=== PATIENT | female | born 1975 | race Caucasian/White ===

== ENCOUNTER 2019-07-16 06:00 | Outpatient (RCR) | payer SELFPAY | END 2019-08-15 00:01 | LOC: SPT 06:00 | PROVIDERS: Family Provider Nurse Practitioner Family; Visit Provider Specialist | DX: M17.12 Unilateral primary osteoarthritis, left knee (principal) | CPT/HCPCS: 97110 ×7 ==

== ENCOUNTER 2019-08-16 06:00 | Outpatient (RCR) | payer SELFPAY | END 2019-09-15 23:00 | disposition home or self-care (01) | LOC: SPT 06:00 | PROVIDERS: Visit Provider Specialist | DX: M17.12 Unilateral primary osteoarthritis, left knee (principal) | CPT/HCPCS: 97110 ==

== ENCOUNTER → 2019-10-17 09:44 | Outpatient (BNVA) | payer SELFPAY | PROVIDERS: Visit Provider Nurse Practitioner Family | DX: E03.9 Hypothyroidism, unspecified (principal); F41.9 Anxiety disorder, unspecified; F32.9 Major depressive disorder, single episode, unspecified; R53.83 Other fatigue | CPT/HCPCS: 84443 ==

== ENCOUNTER → 2020-04-10 12:03 | Outpatient (BNVA) | payer SELFPAY | PROVIDERS: PCP Nurse Practitioner Family; Referring Provider Dermatology; Visit Provider Dermatology | DX: L30.4 Erythema intertrigo (principal); D22.9 Melanocytic nevi, unspecified; D23.9 Other benign neoplasm of skin, unspecified | CPT/HCPCS: 99203 ==

== ENCOUNTER → 2020-07-31 17:00 | Outpatient (BNVA) | payer SELFPAY | PROVIDERS: PCP Nurse Practitioner Family; Visit Provider Family Medicine | DX: N39.41 Urge incontinence (principal); N30.01 Acute cystitis with hematuria; M54.9 Dorsalgia, unspecified | CPT/HCPCS: 81003 ==

== ENCOUNTER 2021-05-25 18:15 | Emergency (ER) | payer OTHER, SELFPAY ==
[2021-05-25 18:42] VITALS: BP 134/87; PULSE 85; RESP 18; TEMP 35.9; O2SAT 97; BMI 49.8
--- NOTE | 2021-05-25 18:54 | W.ED.GENADLT ---
HPI - General Adult General: Chief complaint: General Medical Stated complaint: diarrhea, abd pain Time Seen by Provider: 05/25/21 18:49 Source: patient Mode of arrival: ambulatory Limitations: no limitations History of Present Illness: HPI narrative: 36-year-old female who states that starting roughly 2 to 3 hours ago started having crampy abdominal pain along with severe diarrhea. States she did he did pull a sausage earlier that did not seem to settle well with her stomach. She had some nausea no vomiting. She denies any abdominal pain currently just the cramping with the diarrhea. Denies any blood in her stool. Denies any worsening improving factors. Associated symptoms: Deny chest pain, dyspnea, headache(s) or rash Review of Systems Const: Denies: fever(s), chills, body aches or change in appetite Eyes: Denies: blurry vision or eye discomfort ENMT: Denies: throat pain or dental pain Card: Denies: chest pain Resp: Denies: dyspnea GI: Reports: abdominal pain and diarrhea : Denies: dysuria Musc: Denies: neck pain or back pain Skin/Breast: Denies: rash Neuro: Denies: headache(s) Psych: Denies: depression Ricky/Lymph: Denies: easy bruising All/Imm: Denies: urticaria PFSH ED PFSH: Medical History (Updated 05/25/21 @ 20:23 by Louisa Gill MD) Anxiety and depression Hypothyroid Social History Smoking and tobacco status: never smoked Second hand smoke exposure: No Alcohol intake: never Lives independently: No (mother) Household members: family Housing: House Marital status: Single Current occupational status: employed Current occupation: [employer] Pets and animals: Yes History of recent travel: No Current gender identity: Female Female Reproductive History: Date of last menstrual period: 04/30/21 Physical Exam Const: COMMON NORMALS: no acute distress, patient oriented x3 and healthy appearing HENMT: COMMON NORMALS: normocephalic and atraumatic HEAD & SCALP: normocephalic and atraumatic Eye: COMMON NORMALS: Equal, round and reactive pupils present and EOMs intact bilaterally PUPIL: Yes Equal, round and reactive pupils present Neck/C-Spine: COMMON NORMALS: full ROM and supple Chest: COMMONS NORMALS: normal inspection of the chest and normal palpation of entire chest wall Resp: COMMON NORMALS: normal respiratory effort, No retractions, No use of accessory muscles and clear to auscultation bilaterally AUSCULTATION: clear to auscultation bilaterally Cardio: COMMON NORMALS: regular rate, regular rhythm and No murmurs present (Cardio) RATE: regular rate RHYTHM: regular rhythm GI: COMMON NORMALS: Normal to inspection, nondistended, normoactive bowel sounds present, Soft to palpation, non-tender and no masses PALPATION: Yes Soft to palpation Extremity: COMMON NORMALS: normal to inspection and full ROM Neuro: COMMON NORMALS: patient oriented x3, moves all extremities and no focal motor deficits Psych: COMMON NORMALS: mental status grossly normal, Normal thought process present and cooperative THOUGHT PROCESS: Normal thought process present Skin: COMMON NORMALS: no rashes or lesions noted and no wounds GENERAL SKIN EXAM: no rashes or lesions noted Course Vital Signs: Vital signs: Vital Signs Temperature 98.6 F 05/25/21 19:20 Pulse Rate 96 05/25/21 19:20 Respiratory Rate 14 05/25/21 19:20 Blood Pressure 145/83 05/25/21 19:20 Pulse Oximetry 100 05/25/21 19:20 MDM - General Adult MDM Narrative: Medical decision making narrative: Patient presents here with diarrhea that is likely either food related or viral. She is well-appearing is no signs of any serious infection blood work is normal. She feels improved after IV fluids she is to take Imodium A-D [id number] and will prescribe her Zofran. She is return if worsening. She understands agrees to plan. Lab Data: Labs: Lab Results 05/25/21 05/25/21 19:17 19:17 WBC 10.3 10^3/uL H 10 ^3/uL (4.0-10.0) RBC 4.58 10^6/uL 10^6 /uL (4.1-5.3) Hgb 12.6 g/dL g/dL (11.5-15.3) Hct 38.9 % % (37.0-47.0) MCV 84.9 fl fl (81-99) MCH 27.5 pg L pg (28.0-34.0) MCHC 32.4 g/dL g/dL (30.0-36.0) RDW 15.9 % H % (12.1-15.1) Plt Count 270 10^3/cmm 10^3 /cmm (130-400) MPV 10.1 fL fL (7.4-10.4) Neut % (Auto) 81.7 % % Lymph % (Auto) 11.5 % % [place] % (Auto) 5.5 % % Eos % (Auto) 0.7 % % Baso % (Auto) 0.2 % % Neut # (Auto) 8.38 10^3/uL H 10 ^3/uL (1.8-7.7) Lymph # (Auto) 1.2 10^3/uL 10^3/ uL (0.8-4.8) [place] # (Auto) 0.6 10^3/uL 10^3/ uL (0.2-0.9) Eos # (Auto) 0.1 10^3/uL 10^3/ uL (0.0-0.8) Baso # (Auto) 0.0 10^3/uL 10^3/ uL (0.0-0.1) Nucleated RBC % (a uto) 0 % % Nucleated RBCs # 0.0 /100WBC /100W BC Sodium 136 mmol/L mmol/L (136-145) Potassium 4.0 mmol/L mmol/L (3.5-5.1) Chloride 100 mmol/L mmol/L (98-107) Carbon Dioxide 24 mmol/L mmol/L (22-29) Anion Gap 16.0 (5-19) BUN 13 mg/dL mg/dL (6-20) Creatinine 0.5 mg/dL mg/dL (0.5-0.9) GFR Calculation 133.4 mL/min H mL /min (90-130) Glucose 80 mg/dL mg/dL (65-115) Calculated Osmolal ity 281 mOsm/kg L mOs m/kg (285-295) Calcium 8.8 mg/dL mg/dL (8.5-10.5) Total Bilirubin 0.4 mg/dL mg/dL (0.15-1.2) AST 11 U/L U/L (0-32) ALT 10 U/L U/L (0-33) Alkaline Phosphata se 122 IU/L H IU/L (35-105) Total Protein 7.3 g/dL g/dL (6.6-8.7) Albumin 3.7 g/dL g/dL (3.5-5.2) Globulin 3.6 g/dL g/dL (1.3-4.6) Lipase 19 U/L U/L (13-60) Discharge Plan Discharge Patient Disposition: Home Clinical Impression: Diarrhea Qualifiers: Diarrhea type: unspecified type Qualified Code(s): R19.7 - Diarrhea, unspecified Condition: Stable Prescriptions: New ondansetron 4 mg tablet,disintegrating 4 mg PO Q6H PRN (Reason: nausea and vomiting) Qty: 14 RF: 0 No Action multivitamin Tablet 1 tab PO DAILY RF: 0 glucosamine sulfate [Glucosamine] 500 mg tablet 500 mg PO BID RF: 0 triamcinolone acetonide 0.1 % cream 1 applic topical BID Qty: 80 RF: 1 citalopram 40 mg tablet See Rx Instructions .ROUTE .COMPLEX Qty: 30 RF: 2 albuterol sulfate [Proventil HFA] 90 mcg/actuation HFA aerosol inhaler 2 puff inhalation QID PRN (Reason: shortness of breath or wheezing) Qty: 6.7 RF: 1 ibuprofen 800 mg tablet 800 mg PO Q8H PRNRF: 0 levothyroxine 137 mcg tablet 137 mcg PO DAILY Qty: 30 RF: 2 tolterodine [Detrol LA] 4 mg capsule,extended release 24hr 4 mg PO DAILY Qty: 30 RF: 3 Discharge Orders: Discharge ED (Routine); Ordered 05/25/21 Ordered By: Louisa Gill Referrals: Nunu Chin MD [Primary Care Provider] - 1-3 days Discharge Diet: Advance as tolerated Discharge Activity: Resume usual activity Patient Instructions: Acute Diarrhea (ED) Coding Level of Care Code ED Vp Cardiovascular for Chg Fwd Exam Comprehensive
[2021-05-25 19:20] VITALS: BP 145/83; PULSE 96; RESP 14; TEMP 37; O2SAT 100
[2021-05-25] MEDS: sodium chloride 0.9% 1,000 ML 999 ML IV (19:24)
[2021-05-25] MEDS: diphenoxylate/atropine Tablet 1 TAB PO (19:24)
[2021-05-25 19:33] LABS: Basophils % 0.2 %; Eosinophils # 0.1 10^3/uL (0.0-0.8); Eosinophils % 0.7 %; Hematocrit 38.9 % (37.0-47.0); Hemoglobin 12.6 g/dL (11.5-15.3); Lymphocytes # 1.2 10^3/uL (0.8-4.8); Lymphocytes % 11.5 %; Mean Corpuscular HGB Conc 32.4 g/dL (30.0-36.0); Mean Corpuscular Hemoglobin 27.5 pg (28.0-34.0); Mean Corpuscular Volume 84.9 fl (81-99); Mean Platelet Volume 10.1 fL (7.4-10.4); Monocytes # 0.6 10^3/uL (0.2-0.9); Monocytes % 5.5 %; Neutrophils # 8.38 10^3/uL (1.8-7.7); Neutrophils % 81.7 %; Nucleated Red Blood Cells % 0 %; Platelet Count 270 10^3/cmm (130-400); Red Blood Count 4.58 10^6/uL (4.1-5.3); Red Cell Distribution Width 15.9 % (12.1-15.1); White Blood Count 10.3 10^3/uL (4.0-10.0)
[2021-05-25 20:06] LABS: Alanine Aminotransferase 10 U/L (0-33); Albumin Level 3.7 g/dL (3.5-5.2); Alkaline Phosphatase 122 IU/L (35-105); Aspartate Amino Transferase 11 U/L (0-32); Blood Urea Nitrogen 13 mg/dL (6-20); Calcium 8.8 mg/dL (8.5-10.5); Carbon Dioxide 24 mmol/L (22-29); Chloride 100 mmol/L (98-107); Globulin 3.6 g/dL (1.3-4.6); Glomerular Filtration Rate 133.4 mL/min (90-130); Glucose 80 mg/dL (65-115); Lipase 19 U/L (13-60); Osmolality Calculated 281 mOsm/kg (285-295); Sodium 136 mmol/L (136-145); Total Bilirubin 0.4 mg/dL (0.15-1.2); Total Protein 7.3 g/dL (6.6-8.7)
== END 2021-05-25 20:47 | disposition home or self-care (01) ==
PROVIDERS: Emergency Provider Emergency Medicine; PCP Family Medicine
DX: R19.7 Diarrhea, unspecified (principal)
CPT/HCPCS: 80053; 83690; 85025; 96360; 99283; J7030

== ENCOUNTER → 2021-06-18 13:13 | Outpatient (BNVA) | payer OTHER, SELFPAY | PROVIDERS: PCP Family Medicine; Visit Provider Family Medicine | DX: E03.9 Hypothyroidism, unspecified (principal); L60.0 Ingrowing nail; N39.41 Urge incontinence; F41.9 Anxiety disorder, unspecified; F32.9 Major depressive disorder, single episode, unspecified | CPT/HCPCS: 84443 ==

== ENCOUNTER → 2021-10-23 09:52 | Outpatient (BNVA) | payer OTHER, SELFPAY | PROVIDERS: PCP Family Medicine; Visit Provider Nurse Practitioner Family | DX: E03.9 Hypothyroidism, unspecified (principal); F41.9 Anxiety disorder, unspecified; F32.9 Major depressive disorder, single episode, unspecified; E66.9 Obesity, unspecified | CPT/HCPCS: 80053; 80061; 84443 ==

== ENCOUNTER 2022-01-16 18:26 | Emergency (ER) | payer OTHER, SELFPAY ==
[2022-01-16 18:59] VITALS: BP 136/95; PULSE 80; RESP 18; TEMP 36.3; O2SAT 95; BMI 51.1
--- NOTE | 2022-01-16 19:33 | XRR_ITS ---
PROCEDURE INFORMATION: Exam: XR Chest Exam date and time: 01/16/2022 8:30 PM Age: 46 years old Clinical indication: Cough and shortness of breath; Patient HX: Cough with SOB. Green mucus production. ; Additional info: Cough SOB TECHNIQUE: Imaging protocol: XR of the chest. Views: 1 view. COMPARISON: No relevant prior studies available. FINDINGS: Lungs: Unremarkable. No consolidation. Pleural spaces: Unremarkable. No pleural effusion. No pneumothorax. Heart/Mediastinum: Unremarkable. No cardiomegaly. Bones/joints: Unremarkable. XR/XR chest 1V portable [id number] IMPRESSION: No acute findings.
--- NOTE | 2022-01-16 19:50 | W.ED.SOB ---
HPI - SOB/Dyspnea General: Chief Complaint: General Medical Stated Complaint: Sinus Problems And Asthma Time Seen by Provider: 01/16/22 18:49 Source: patient History of Present Illness: HPI Narrative: 46-year-old female with a history of asthma complains of cough, congestion, for about a week. She notes today she got short of breath at work, and had to use her inhaler. It helped some, but not completely. She denies fever. No GI symptoms. MD elicited complaint: shortness of breath Pertinent past history: asthma Onset (ago): day(s) Timing: constant Severity: moderate Exacerbating factors: exertion Relieving factors: bronchodilators Known history of: asthma Associated symptoms: Reports chest congestion and cough; Deny abdominal pain, chest pain, dizziness, extremity pain, fever(s), nausea or vomiting Treatment prior to arrival: bronchodilator Review of Systems Const: Denies: fever(s) Eyes: Denies: change in vision ENMT: Reports: throat pain and hoarseness Card: Denies: chest pain Resp: Reports: dyspnea, non-productive cough and chest congestion GI: Denies: abdominal pain, nausea or vomiting Musc: Denies: extremity pain Neuro: Denies: dizziness PFS ED PFSH: Medical History (Updated 01/16/22 @ 20:36 by Kevin Holder DO) Anxiety and depression Hypothyroid Social History Smoking and tobacco status: never smoked Second hand smoke exposure: No Alcohol intake: never Lives independently: No (mother) Household members: family Housing: House Marital status: Single Current occupational status: employed Current occupation: [employer] Pets and animals: Yes History of recent travel: No Current gender identity: Female Female Reproductive History: Date of last menstrual period: 12/16/21 Physical Exam Const: GENERAL APPEARANCE: cooperative; not ill appearing and not frail appearing HENMT: COMMON NORMALS: normocephalic and Normal external nose present HEAD & SCALP: normocephalic FACE & SINUS: normal facial exam, sinuses nontender and face symmetric NOSE: Normal external nose present THROAT: posterior oropharynx normal Eye: COMMON NORMALS: Equal, round and reactive pupils present and EOMs intact bilaterally PUPIL: Yes Equal, round and reactive pupils present Neck/C-Spine: COMMON NORMALS: full ROM GENERAL: Yes trachea midline Chest: CHEST: Yes Symmetrical chest wall rise Resp: COMMON NORMALS: normal respiratory effort and No use of accessory muscles AUSCULTATION: wheezes right lower and right upper Cardio: COMMON NORMALS: regular rate and regular rhythm RATE: regular rate RHYTHM: regular rhythm GI: COMMON NORMALS: Normal to inspection, nondistended, normoactive bowel sounds present Course Vital Signs: Vital signs: Vital Signs Temperature 97.3 F L 01/16/22 18:59 Pulse Rate 80 01/16/22 18:59 Respiratory Rate 18 01/16/22 18:59 Blood Pressure 136/95 01/16/22 18:59 Pulse Oximetry 95 01/16/22 18:59 MDM - SOB/Dyspnea Medical Decision Making X-ray is clear. The patient is wheezing. She has had over a week of symptoms. She will be prescribed steroids and antibiotics, she does have a history of asthma. Discharge Plan Discharge Patient Disposition: Home Clinical Impression: Bronchitis Condition: Stable Prescriptions: New Medrol (Victor M) 4 mg tablets,dose pack See Rx Instructions .ROUTE .COMPLEX Qty: 21 0RF Rx Instructions: orally per package directions doxycycline hyclate 100 mg capsule 100 mg PO BID 7 Days Qty: 14 0RF No Action multivitamin Tablet 1 tab PO DAILY 0RF glucosamine sulfate [Glucosamine] 500 mg tablet 500 mg PO BID 0RF triamcinolone acetonide 0.1 % cream 1 applic topical BID Qty: 80 1RF albuterol sulfate [Proventil HFA] 90 mcg/actuation HFA aerosol inhaler 2 puff inhalation QID PRN (Reason: shortness of breath or wheezing) Qty: 6.7 1RF sertraline [Zoloft] 50 mg tablet 50 mg PO DAILY 30 Days Qty: 30 6RF metformin 500 mg tablet 500 mg PO DAILY Qty: 30 11RF ibuprofen 800 mg tablet 800 mg PO Q8H PRN0RF levothyroxine 150 mcg capsule 150 mcg PO DAILY Qty: 30 2RF diclofenac sodium [Voltaren Arthritis Pain] 1 % gel 4 g topical QID Qty: 100 3RF Rx Instructions: apply to single knee, ankle, foot; for foot includes sole/toes/top of foot oxybutynin chloride 5 mg tablet See Rx Instructions .ROUTE .COMPLEX Qty: 60 0RF Dose Instruction: Take 1 tablet by mouth twice daily Rx Instructions: Take 1 tablet by mouth twice daily ondansetron 4 mg tablet,disintegrating 4 mg PO Q6H PRN (Reason: nausea and vomiting) Qty: 14 0RF Discharge Orders: Discharge ED (Routine); Ordered 01/16/22 Ordered By: Kevin Holder Referrals: Nunu Chin MD [Primary Care Provider] - 4-7 days Patient Instructions: Acute Bronchitis (ED) Activity Restrictions/Additional Instructions: Use your inhaler every 4 hours while awake for the next 48 hours, then as needed. Other medications as directed. Return for worsening shortness of breath despite treatment, significant chest discomfort, fever despite 2-3 doses of antibiotics, any other concerning symptoms. Coding Level of Care Code ED Manager Sterile for Chg Fwd Exam Comprehensive
[2022-01-16 21:13] VITALS: BP 140/91; PULSE 81; RESP 17; TEMP 36.6; O2SAT 95
== END 2022-01-16 21:14 | disposition home or self-care (01) ==
PROVIDERS: Emergency Provider Emergency Medicine; PCP Family Medicine
DX: J40 Bronchitis, not specified as acute or chronic (principal)
CPT/HCPCS: 71045; 99283

== ENCOUNTER → 2022-03-05 11:49 | Outpatient (BNVA) | payer OTHER, SELFPAY | PROVIDERS: PCP Family Medicine; Visit Provider Nurse Practitioner Family | DX: E28.2 Polycystic ovarian syndrome (principal); F41.9 Anxiety disorder, unspecified; F32.9 Major depressive disorder, single episode, unspecified; E03.9 Hypothyroidism, unspecified; M17.12 Unilateral primary osteoarthritis, left knee; E66.9 Obesity, unspecified; L60.0 Ingrowing nail; R12 Heartburn; Z80.0 Family history of malignant neoplasm of digestive organs; Z12.11 Encounter for screening for malignant neoplasm of colon; R19.7 Diarrhea, unspecified; L70.9 Acne, unspecified; L98.9 Disorder of the skin and subcutaneous tissue, unspecified; L72.9 Follicular cyst of the skin and subcutaneous tissue, unspecified; L30.9 Dermatitis, unspecified | CPT/HCPCS: 80053; 80061; 83516; 85007; 85027 ==

== ENCOUNTER → 2022-06-05 13:20 | Outpatient (BNVA) | payer OTHER, SELFPAY | PROVIDERS: PCP Family Medicine; Visit Provider Nurse Practitioner Family | DX: F32.4 Major depressive disorder, single episode, in partial remission (principal); E28.2 Polycystic ovarian syndrome; E66.9 Obesity, unspecified; F41.9 Anxiety disorder, unspecified; F32.9 Major depressive disorder, single episode, unspecified; E03.9 Hypothyroidism, unspecified; M17.12 Unilateral primary osteoarthritis, left knee; R12 Heartburn; J34.89 Other specified disorders of nose and nasal sinuses; J33.9 Nasal polyp, unspecified | CPT/HCPCS: 80053; 80061 ==

== ENCOUNTER → 2022-10-02 13:10 | Outpatient (BNVA) | payer SELFPAY | PROVIDERS: PCP Family Medicine; Visit Provider Nurse Practitioner Family | DX: F41.9 Anxiety disorder, unspecified (principal); F32.4 Major depressive disorder, single episode, in partial remission; R53.83 Other fatigue; E28.2 Polycystic ovarian syndrome; L65.9 Nonscarring hair loss, unspecified; R25.2 Cramp and spasm; E03.9 Hypothyroidism, unspecified; M79.671 Pain in right foot; R32 Unspecified urinary incontinence; R12 Heartburn; N95.9 Unspecified menopausal and perimenopausal disorder | CPT/HCPCS: 80053; 80061; 82607; 82672; 83735; 84144; 84403 ==

== ENCOUNTER → 2023-06-04 13:16 | Outpatient (BNVA) | payer OTHER, SELFPAY | PROVIDERS: PCP Family Medicine; Visit Provider Nurse Practitioner Family | DX: F41.9 Anxiety disorder, unspecified (principal); F32.9 Major depressive disorder, single episode, unspecified; E03.9 Hypothyroidism, unspecified; R53.83 Other fatigue; E28.2 Polycystic ovarian syndrome; E66.9 Obesity, unspecified; M17.12 Unilateral primary osteoarthritis, left knee; R12 Heartburn; R32 Unspecified urinary incontinence; F32.4 Major depressive disorder, single episode, in partial remission; M25.562 Pain in left knee; E66.01 Morbid (severe) obesity due to excess calories; N39.41 Urge incontinence | CPT/HCPCS: 80053; 80061; 83036; 84443 ==

== ENCOUNTER → 2023-10-01 11:53 | Outpatient (BNVA) | payer OTHER, SELFPAY | PROVIDERS: PCP Nurse Practitioner Family; Visit Provider Nurse Practitioner Family | DX: F41.9 Anxiety disorder, unspecified (principal); F32.9 Major depressive disorder, single episode, unspecified; E03.9 Hypothyroidism, unspecified; E28.2 Polycystic ovarian syndrome; E66.01 Morbid (severe) obesity due to excess calories; Z79.899 Other long term (current) drug therapy | CPT/HCPCS: 80053; 80061; 83036; 84443; 85025 ==

== ENCOUNTER 2024-03-05 18:28 | Emergency (ER) | payer OTHER, SELFPAY ==
[2024-03-05 18:44] VITALS: BP 142/84; PULSE 79; RESP 17; TEMP 37.2; O2SAT 97; BMI 48.0
[2024-03-05 19:23] VITALS: BP 130/63; PULSE 76; RESP 18; O2SAT 99
[2024-03-05] MEDS: sodium chloride 0.9% 1,000 ML 999 ML IV (19:34)
[2024-03-05] MEDS: ondansetron 2 mg/ML SDV 2 mL 4 MG IVP (19:34)
[2024-03-05 19:35] VITALS: BP 130/63; PULSE 76; RESP 18; O2SAT 98
[2024-03-05 19:35] LABS: Basophils % 0.4 %; Eosinophils # 0.1 10^3/uL (0.0-0.8); Eosinophils % 1.1 %; Hematocrit 39.8 % (36-47); Lymphocytes # 1.1 10^3/uL (0.8-4.8); Lymphocytes % 13.9 %; Mean Corpuscular HGB Conc 32.4 g/dL (30-55); Mean Corpuscular Hemoglobin 27.3 pg (27-33); Mean Corpuscular Volume 84.1 fl (85-98); Mean Platelet Volume 10.1 fL (7.4-10.4); Monocytes # 0.5 10^3/uL (0.2-0.9); Monocytes % 7.2 %; Neutrophils # 5.83 10^3/uL (1.8-7.7); Neutrophils % 77.1 %; Nucleated Red Blood Cells % 0 %; Platelet Count 244 10^3/cmm (157-399); Red Blood Count 4.73 10^6/uL (3.85-5.65); Red Cell Distribution Width 15.4 % (12.1-15.1); White Blood Count 7.55 10^3/uL (3.29-11.43)
[2024-03-05 19:40] LABS: Add Urine Microscopic? NO; Charge for UA Resulting for Rev
--- NOTE | 2024-03-05 19:40 | ED_ITS ---
HPI - Nausea/Vomiting/Diarrhea 2 General: Chief complaint: Nausea/Vomiting/Diarrhea Stated complaint: Weak\Vomiting Time Seen by Provider: 03/05/24 19:05 History of Present Illness: Patient presents to the ER with a 2-day history of nausea vomiting. Patient says she has a stabbing twisting pain in her abdomen when she has a bowel movement. Patient is also been unable to make it to the bathroom for urinating. Patient has never had either 1 of these episodes before. She does take Pepcid daily. She does have a family history of colon cancer but not a personal history. She is on oxybutynin for overactive bladder. Review of Systems 2 General: Reports: 10 or more systems reviewed and unremarkable except in HPI and below PFSH ED 2 PFSH: Medical History (Updated 03/05/24 @ 20:16 by Oli Shearer DO) Anxiety and depression Hypothyroid Social History Smoking and tobacco/nicotine status: current every day tobacco/nicotine user Second hand smoke exposure: No Alcohol intake: never Substance/Drug Use: never Lives independently: No (mother) Household members: family Housing: House Marital status: Single Current occupational status: employed Current occupation: [employer] Pets and animals: Yes Current gender identity: Female Physical Exam 2 Const: COMMON NORMALS: no acute distress, average body habitus, patient oriented x3, no limitations, healthy appearing, alert and well nourished HENMT: COMMON NORMALS: normocephalic, hearing grossly normal bilaterally, external ears normal, Normal external nose present and moist oral mucous membranes HEAD & SCALP: normocephalic NOSE: Normal external nose present EXTERNAL EAR: Yes external ears normal Neck/C-Spine: COMMON NORMALS: no JVD Chest: COMMONS NORMALS: normal inspection of the chest and normal palpation of entire chest wall Resp: COMMON NORMALS: normal respiratory effort, No retractions, No use of accessory muscles and clear to auscultation bilaterally AUSCULTATION: clear to auscultation bilaterally Cardio: COMMON NORMALS: no JVD, regular rate, regular rhythm, S1 normal heart sound present, S2 normal heart sound present, No gallops present (Cardio), No clicks present (Cardio), No murmurs present (Cardio) and No rub (Cardio) R ATE: regular rate RHYTHM: regular rhythm HEART SOUNDS: S1 normal heart sound present and S2 normal heart sound present GI: COMMON NORMALS: Normal to inspection, nondistended, normoactive bowel sounds present, Soft to palpation, non-tender, No hepatosplenomegaly present and no masses PALPATION: Yes Soft to palpation and Yes No hepatosplenomegaly present Neuro: COMMON NORMALS: patient oriented x3 SENSORIUM/ORIENTATION: Yes alert Course 2 Vital Signs: Vital signs: Vital Signs Temperature 98.9 F 03/05/24 18:44 Pulse Rate 76 03/05/24 19:35 Respiratory Rate 18 03/05/24 19:35 Blood Pressure 130/63 03/05/24 19:35 Pulse Oximetry 98 03/05/24 19:35 Oxygen Delivery Me thod Room Air 03/05/24 19:35 MDM - Nausea/Vomiting/Diarrhea Medical Decision Making Patient presents with abdominal pain and nausea vomiting. Patient had lab work that included CBC CMP magnesium lipase, patient was given 1 L normal saline, 4 mg Zofran, urinalysis, lab work was essentially benign. Patient was feeling much better after the Zofran and fluid. Patient be discharged home with prescription for Zofran. Differential Diagnosis Likely gastroenteritis; Unlikely traveler's diarrhea, food poisoning, clostridium difficile infection, drug-induced nausea and vomiting or dehydration Medical Records I reviewed the patient's medical records. Lab Data I reviewed the patient's lab results. 03/05/24 19:21 03/05/24 19:21 Laboratory Results WBC 7.55 10^3/uL (3.29-11.43) 03/05/24 19: RBC 4.73 10^6/uL (3.85-5.65) 03/05/24 19:21 Hgb 12.90 g/dL (11.27-16.99) 03/05/24 19:21 Hct 39.8 % (36-47) 03/05/24 19:21 MCV 84.1 fl (85-98) L 03/05/24 19:21 MCH 27.3 pg (27-33) 03/05/24 19: MCHC 32.4 g/dL (30-55) 03/05/24 19:21 RDW 15.4 % (12.1-15.1) H 03/05/24 19:21 Plt Count 244 10^3/cmm (157-399) 03/05/24 19:21 MPV 10.1 fL (7.4-10.4) 03/05/24 19:21 Neut % (Auto) 77.1 % 03/05/24 19:21 Lymph % (Auto) 13.9 % 03/05/24 19:21 [place] % (Auto) 7.2 % 03/05/24 19:21 Eos % (Auto) 1.1 % 03/05/24 19:21 Baso % (Auto) 0.4 % 03/05/24 19:21 Neut # (Auto) 5.83 10^3/uL (1.8-7.7) 03/05/24 19:21 Lymph # (Auto) 1.1 10^3/uL (0.8-4.8) 03/05/24 19:21 [place] # (Auto) 0.5 10^3/uL (0.2-0.9) 03/05/24 19:21 Eos # (Auto) 0.1 10^3/uL (0.0-0.8) 03/05/24 19:21 Baso # (Auto) 0.0 10^3/uL (0.0-0.1) 03/05/24 19:21 Nucleated RBC % (auto) 0 % 03/05/24 19:21 Nucleated RBCs # 0.0 /100WBC 03/05/24 19:21 Sodium 139 mmol/L (136-145) 03/05/24 19:21 Potassium 4.3 mmol/L (3.5-5.1) 03/05/24 19:21 Chloride 105 mmol/L (98-107) 03/05/24 19:21 Carbon Dioxide 23 mmol/L (22-29) 03/05/24 19:21 Anion Gap 15.3 (5-19) 03/05/24 19:21 BUN 12 mg/dL (6-20) 03/05/24 19:21 Creatinine 0.4 mg/dL (0.5-0.9) L 03/05/24 19:21 GFR Calculation 171.1 mL/min (90-130) H 03/05/24 19:21 Glucose 90 mg/dL (65-115) 03/05/24 19:21 Calculated Osmolality 287 mOsm/kg (285-295) 03/05/24 19: Calcium 9.0 mg/dL (8.5-10.5) 03/05/24 19: Magnesium 2.0 mg/dL (1.7-2.3) 03/05/24 19:21 Total Bilirubin 0.3 mg/dL (0.15-1.2) 03/05/24 19:21 AST 13 U/L (0-32) 03/05/24 19:21 ALT 13 U/L (0-33) 03/05/24 19:21 Alkaline Phosphatase 119 U/L (35-105) H 03/05/24 19:21 Total Protein 7.6 g/dL (6.6-8.7) 03/05/24 19: Albumin 4.0 g/dL (3.5-5.2) 03/05/24 19: Globulin 3.6 g/dL (1.3-4.6) 03/05/24 19: Lipase 32 U/L (13-60) 03/05/24 19:21 Urine Color Yellow (Yellow) 03/05/24 19:30 Urine Appearance Clear (CLEAR) 03/05/24 19:30 Urine pH 5 (5-7) 03/05/24 19:30 Ur Specific [place] 1.020 (1.005-1.030) 03/05/24 19:30 Urine Protein Neg (Negative) 03/05/24 19:30 Urine Glucose (UA) Norm (Normal) 03/05/24 19:30 Urine Ketones 1+ (Negative) H 03/05/24 19:30 Urine Blood Neg (Negative) 03/05/24 19:30 Urine Nitrate Negative (Negative) 03/05/24 19:30 Urine Bilirubin Neg (Negative) 03/05/24 19:30 Urine Urobilinogen 1 mg/dL (Negative) H 03/05/24 19:30 Ur Leukocyte Esterase Negative (Negative) 03/05/24 19:30 All radiology interpretation(s) finalized by discharge Discharge Plan Discharge Patient Disposition: Home Clinical Impression: Gastroenteritis Abdominal pain Qualifiers: Abdominal location: unspecified location Qualified Code(s): R10.9 - Unspecified abdominal pain Condition: Stable Prescriptions: New ondansetron HCl 4 mg tablet 4 mg PO Q8H PRN (Reason: nausea and vomiting) Qty: 14 0RF No Action buspirone 10 mg tablet 10 mg PO TID 30 Days Qty: 90 6RF diclofenac sodium [Voltaren Arthritis Pain] 1 % gel 4 g topical QID Qty: 100 6RF Rx Instructions: apply to single knee, ankle, foot; for foot includes sole/toes/top of foot famotidine 40 mg tablet 40 mg PO DAILY 30 Days Qty: 90 6RF ibuprofen 800 mg tablet 800 mg PO Q8H PRN (Reason: pain) Qty: 30 0RF levothyroxine 150 mcg tablet See Rx Instructions .ROUTE .COMPLEX Qty: 30 6RF Dose Instruction: Take 1 tablet by mouth once daily Rx Instructions: Take 1 tablet by mouth once daily metformin 500 mg tablet 500 mg PO DAILY Qty: 30 6RF nystatin 100,000 unit/gram cream 1 applic topical BID Qty: 30 1RF oxybutynin chloride 5 mg tablet 5 mg PO BID 30 Days Qty: 60 6RF sertraline 100 mg tablet 100 mg PO DAILY 30 Days Qty: 30 6RF triamcinolone acetonide 0.1 % cream 1 applic topical BID Qty: 80 1RF Discharge Orders: Discharge ED (Routine); Ordered 03/05/24 Ordered By: Oli Shearer Referrals: Pastora Paez NP [Primary Care Provider] - 1 week Patient Instructions: Acute Nausea and Vomiting (ED), Abdominal Pain (ED) Activity Restrictions/Additional Instructions: Your lab work that included blood tests and urinalysis was essentially benign. It is felt you have a viral gastroenteritis or stomach virus. Please take your nausea medicine as prescribed. Please drink plenty of fluids. Please follow-up with your family practice doctor within the next 7 to 10 days for further evaluation as needed. If your pain worsens or if your nausea and vomiting is uncontrolled please feel free to return to the ER. Coding Level of Care Code ED Data Scientist for Jared Vargas
[2024-03-05 19:48] LABS: Bilirubin Urine Neg (Negative); Blood Urine Neg (Negative); Glucose Urine UA Norm (Normal); Ketones Urine 1+ (Negative); Leukocyte Esterase Urine Negative (Negative); Nitrate Urine Negative (Negative); Protein Urine Neg (Negative); Urine Appearance Clear (CLEAR); Urine Color Yellow (Yellow); Urobilinogen Urine 1 mg/dL (Negative); pH Urine 5 (5-7)
[2024-03-05 19:58] LABS: Alanine Aminotransferase 13 U/L (0-33); Alkaline Phosphatase 119 U/L (35-105); Anion Gap 15.3 (5-19); Aspartate Amino Transferase 13 U/L (0-32); Blood Urea Nitrogen 12 mg/dL (6-20); Carbon Dioxide 23 mmol/L (22-29); Chloride 105 mmol/L (98-107); Creatinine Clr Calc Pharmacy 229.5261; Globulin 3.6 g/dL (1.3-4.6); Glomerular Filtration Rate 171.1 mL/min (90-130); Glucose 90 mg/dL (65-115); Lipase 32 U/L (13-60); Osmolality Calculated 287 mOsm/kg (285-295); Potassium 4.3 mmol/L (3.5-5.1); Sodium 139 mmol/L (136-145); Total Bilirubin 0.3 mg/dL (0.15-1.2); Total Protein 7.6 g/dL (6.6-8.7)
[2024-03-05 20:34] VITALS: BP 130/63; PULSE 76; RESP 18; TEMP 37.2; O2SAT 98
== END 2024-03-05 20:35 | disposition home or self-care (01) ==
PROVIDERS: Emergency Medicine; Emergency Provider Emergency Medicine; PCP Nurse Practitioner Family
DX: K52.9 Noninfective gastroenteritis and colitis, unspecified (principal); Z79.84 Long term (current) use of oral hypoglycemic drugs; Z72.0 Tobacco use; R10.9 Unspecified abdominal pain
CPT/HCPCS: 36415; 80053; 81003; 83690; 83735; 85025; 96361; 96374; 99284; J2405; J7030

== ENCOUNTER → 2024-04-07 08:49 | Outpatient (BNVA) | payer OTHER, SELFPAY | PROVIDERS: PCP Nurse Practitioner Family; Visit Provider Nurse Practitioner Family | DX: E78.2 Mixed hyperlipidemia (principal); F41.9 Anxiety disorder, unspecified; F32.9 Major depressive disorder, single episode, unspecified; E03.9 Hypothyroidism, unspecified; E66.01 Morbid (severe) obesity due to excess calories; E28.2 Polycystic ovarian syndrome | CPT/HCPCS: 80053; 80061; 85025 ==

== ENCOUNTER 2024-05-22 13:51 | Outpatient (CLI) | payer OTHER, SELFPAY ==
--- NOTE | 2024-05-22 13:56 | MM_ITS ---
WS: [id number] SCREENING DIGITAL BREAST TOMOSYNTHESIS MAMMOGRAM WITH CAD HISTORY: SCREENIG COMPARISON: None available. Bilateral CC and MLO with tomosynthesis and synthetic mammography submitted. Computer aided detection analyzed. Breast composition: There are scattered areas of fibroglandular density. Ovoid mass measuring 15 x 7 x 9 mm anterior lateral LEFT breast. Mass is of increased density. No distortion. There are additiona l calcifications scattered within each breast. MM/MM Psychiatric tomosynthesis [id number] IMPRESSION: BI-RADS: 0 - Incomplete: Need additional imaging evaluation. FOLLOW UP: Need Additional Imaging LEFT breast: Spot compression views (CC and MLO). True ML. Ultrasound to follow if abnormality persists.
== END 2024-05-22 13:52 | disposition home or self-care (01) ==
LOC: RAD 13:52
PROVIDERS: PCP Nurse Practitioner Family; Visit Provider Nurse Practitioner Family
DX: Z12.31 Encounter for screening mammogram for malignant neoplasm of breast (principal); R92.323 Mammographic fibroglandular density, bilateral breasts; N63.20 Unspecified lump in the left breast, unspecified quadrant; R92.1 Mammographic calcification found on diagnostic imaging of breast
CPT/HCPCS: 77063; 77067

== ENCOUNTER 2024-08-10 19:13 | Emergency (ER) | payer OTHER, SELFPAY ==
[2024-08-10 19:19] VITALS: BP 173/83; PULSE 86; RESP 20; TEMP 36.6; O2SAT 97; BMI 46.3
[2024-08-10 19:27] VITALS: BP 139/83; PULSE 86; O2SAT 98
[2024-08-10 19:52] VITALS: BP 110/92; PULSE 82; O2SAT 98
[2024-08-10] MEDS: ondansetron 2 mg/ML SDV 2 mL 8 MG PO (19:53)
--- NOTE | 2024-08-10 19:58 | ED_ITS ---
HPI - Abdominal Pain 2 General: Chief Complaint: Abdominal Pain Stated Complaint: abd pain Time Seen by Provider: 08/10/24 19:16 Source: patient Mode of arrival: ambulatory Limitations: no limitations History of Present Illness: Patient is a 49-year-old female with no pertinent past medical history who reports to the emergency department complaining of diarrhea for 3 days. Denies any known sick contacts. Denies any blood or black tarry stools, states it is the consistency and color of mud. She is reporting some mild upper abdominal pain. States that she is due for another colonoscopy, has a history of polyps as well as family history of colon cancer and this concerned her. States that she had to call into work due to her diarrhea, is also reporting some rectal pain from the diarrhea. Denies any vomiting, but is feeling nauseous. She states she has had her gallbladder out, does not report her symptoms or pain to eating. She actually is noting that she has had a decreased appetite. States that her diarrhea is worse if she drinks coffee. MD elicited complaint: abdominal pain Pertinent past history: none Onset (ago): day(s) (3) Pain Consistency: constant Location: LUQ and RUQ Severity: mild Quality: cramping Associated Symptoms: Reports diarrhea and nausea; Denies bloating, change in stool character, chills, constipation, dysuria, fever(s), hematochezia and vomiting Related Data Previous Rx's Medication Instructions Recorded nystatin 100,000 unit/mL oral 5 ml PO QID #200 mL 03/23/24 suspension buspirone 10 mg tablet 10 mg PO TID 30 days #90 tabs 04/07/24 famotidine 40 mg tablet 40 mg PO DAILY 30 days #90 tabs 04/07/24 levothyroxine 150 mcg tablet See Rx Instructions .Route 04/07/24 .COMPLEX #30 tabs oxybutynin chloride 5 mg tablet 5 mg PO BID 30 days #60 tabs 04/07/24 metformin 500 mg tablet 500 mg PO BID #60 tabs 05/10/24 sertraline 100 mg tablet 150 mg (1.5 x 100 mg) PO DAILY 30 05/10/24 days #45 tabs fluconazole 100 mg tablet 100 mg PO DAILY #10 tabs 05/18/24 (Diflucan) nystatin 100,000 unit/gram topical 1 applic topical BID #60 grams 05/18/24 ointment permethrin 5 % topical cream 1 applic topical Q14D 2 doses #60 05/26/24 grams prednisone 20 mg tablet 20 mg PO BID 5 days #10 tabs 05/26/24 trazodone 50 mg tablet 50 mg PO .qhs #30 tabs 05/26/24 ondansetron HCl 4 mg tablet 4 mg PO Q8H #20 tabs 08/10/24 Allergies Allergy/AdvReac Type Severity Reaction Status Date / Time doxycycline Allergy ALGY-Rash Verified 06/15/24 06:55 erythromycin base Allergy ALGY-Rash Verified 06/15/24 06:55 naproxen Allergy ALGY-Difficulty Verified 06/15/24 06:55 Breathing Penicillins Allergy ALGY-Rash Verified 06/15/24 06:55 Sulfa (Sulfonamide Allergy ALGY-Rash Verified 06/15/24 06:55 Antibiotics) Review of Systems 2 General: Reports: 10 or more systems reviewed and unremarkable except in HPI and below Const: Reports: change in appetite; Denies: fever(s), chills, change in weight or diaphoresis ENMT: Denies: throat pain or hoarseness Card: Denies: chest pain, palpitations or lightheadedness Resp: Denies: dyspnea, productive cough or wheezing GI: Reports: abdominal pain, nausea and diarrhea; Denies: vomiting, constipation, bloating, change in stool character or hematochezia : Denies: flank pain, difficulty voiding, dysuria, urinary frequency or urinary urgency Musc: Denies: neck pain or back pain Skin/Breast: Denies: rash or new lesions Neuro: Denies: headache(s) or dizziness PFSH ED 2 PFSH: Medical History (Updated 08/10/24 @ 20:29 by PAVAN Nash) Anxiety and depression Hypothyroid Social History Smoking and tobacco/nicotine status: never used tobacco/nicotine Second hand smoke exposure: No Alcohol intake: never Substance/Drug Use: never Lives independently: No (mother) Household members: family Housing: House Marital status: Single Current occupational status: employed Current occupation: [employer] Pets and animals: Yes Sexually active: Yes Do you think of yourself as: Straight/Heterosexual Current gender identity: Female Female Reproductive History: Para: 0 Spontaneous abortions: No Physical Exam 2 Const: COMMON NORMALS: no acute distress, no limitations and well nourished GENERAL APPEARANCE: cooperative and comfortable NUTRITIONAL APPEARANCE: obese morbidly obese ORIENTATION/CONSCIOUSNESS: Yes awake HENMT: COMMON NORMALS: normocephalic, atraumatic, hearing grossly normal bilaterally and moist oral mucous membranes HEAD & SCALP: normocephalic and atraumatic Eye: COMMON NORMALS: Equal, round and reactive pupils present, EOMs intact bilaterally, conjunctivae normal and normal visual francis by confrontation C ONJUNCTIVA: Yes conjunctivae normal PUPIL: Yes Equal, round and reactive pupils present Neck/C-Spine: COMMON NORMALS: full ROM, supple and no JVD Resp: COMMON NORMALS: normal respiratory effort, No retractions, No use of accessory muscles and clear to auscultation bilaterally AUSCULTATION: clear to auscultation bilaterally, no crackles, no rales, no rhonchi and no wheezes Cardio: COMMON NORMALS: no JVD, regular rate, regular rhythm, S1 normal heart sound present, S2 normal heart sound present, No gallops present (Cardio), No clicks present (Cardio), No murmurs present (Cardio), No rub (Cardio) and Peripheral pulses 2+ throughout RATE: regular rate RHYTHM: regular rhythm HEART SOUNDS: S1 normal heart sound present and S2 normal heart sound present PERIPHERAL PULSES: Peripheral pulses 2+ throughout GI: COMMON NORMALS: Normal to inspection, nondistended, normoactive bowel sounds present, Soft to palpation, No hepatosplenomegaly present and no masses INSPECTION: Yes central obesity AUSCULTATION: Yes normoactive bowel sounds PALPATION: Yes Soft to palpation, No Guarding due to palpation present (GI), No Rigid due to palpation and Yes No hepatosplenomegaly present RECTAL EXAM: d eferred OTHER: Mild upper abdominal tenderness to palpation : COMMON NORMALS: Yes no CVA tenderness BLADDER/KIDNEY EXAM: Yes no CVA tenderness Back/Pelvis: COMMON NORMALS: no CVA tenderness Extremity: COMMON NORMALS: normal to inspection and full ROM Skin: COMMON NORMALS: no rashes or lesions noted GENERAL SKIN EXAM: no rashes or lesions noted Course 2 Vital Signs: Vital signs: Vital Signs Temperature 97.9 F 08/10/24 19:19 Pulse Rate 86 08/10/24 19:27 Respiratory Rate 20 H 08/10/24 19:19 Blood Pressure 139/83 08/10/24 19:27 Pulse Oximetry 98 08/10/24 19:27 MDM - Abdominal Pain Medical Decision Making Patient presented with diarrhea for the past few days. No sick contacts reported. Her labs were all unremarkable. No clear sign of infection. I believe her abdominal pain secondary to her diarrhea potentially some colicky pain. Her vitals have been stable. I do think this is viral and will treat conservatively with Zofran, she is feeling better after receiving Zofran here. Will give a work note so that she can rest and recover, encourage plenty of fluids and strict return precautions were given. Patient agreement with discharge plan at this time. Lab Data 08/10/24 19:52 08/10/24 19:52 Labs/Radiology: Laboratory Results WBC 8.80 10^3/uL (3.29-11.43) 08/10/24 19:52 RBC 4.56 10^6/uL (3.85-5.65) 08/10/24 19:52 Hgb 11.30 g/dL (11.27-16.99) 08/10/24 19:52 Hct 37.1 % (36-47) 08/10/24 19:52 MCV 81.4 fl (85-98) L 08/10/24 19:52 MCH 24.8 pg (27-33) L 08/10/24 19:52 MCHC 30.5 g/dL (30-55) 08/10/24 19:52 RDW 15.8 % (12.1-15.1) H 08/10/24 19:52 Plt Count 262 10^3/cmm (157-399) 08/10/24 19:52 MPV 9.4 fL (7.4-10.4) 08/10/24 19:52 Neut % (Auto) 78.8 % 08/10/24 19:52 Lymph % (Auto) 13.3 % 08/10/24 19:52 [place] % (Auto) 6.6 % 08/10/24 19:52 Eos % (Auto) 0.7 % 08/10/24 19:52 Baso % (Auto) 0.3 % 08/10/24 19:52 Neut # (Auto) 6.93 10^3/uL (1.8-7.7) 08/10/24 19:52 Lymph # (Auto) 1.2 10^3/uL (0.8-4.8) 08/10/24 19:52 [place] # (Auto) 0.6 10^3/uL (0.2-0.9) 08/10/24 19:52 Eos # (Auto) 0.1 10^3/uL (0.0-0.8) 08/10/24 19:52 Baso # (Auto) 0.0 10^3/uL (0.0-0.1) 08/10/24 19:52 Nucleated RBC % (auto) 0 % 08/10/24 19:52 Nucleated RBCs # 0.0 /100WBC 08/10/24 19:52 Sodium 137 mmol/L (136-145) 08/10/24 19:52 Potassium 3.8 mmol/L (3.5-5.1) 08/10/24 19:52 Chloride 103 mmol/L (98-107) 08/10/24 19:52 Carbon Dioxide 23 mmol/L (22-29) 08/10/24 19:52 Anion Gap 14.8 (5-19) 08/10/24 19:52 BUN 16 mg/dL (6-20) 08/10/24 19:52 Creatinine 0.5 mg/dL (0.5-0.9) 08/10/24 19:52 GFR Calculation 131.7 mL/min (90-130) H 08/10/24 19:52 Glucose 98 mg/dL (65-115) 08/10/24 19:52 Calculated Osmolality 285 mOsm/kg (285-295) 08/10/24 19:52 Calcium 8.6 mg/dL (8.5-10.5) 08/10/24 19:52 Total Bilirubin 0.2 mg/dL (0.15-1.2) 08/10/24 19:52 AST 12 U/L (0-32) 08/10/24 19:52 ALT 11 U/L (0-33) 08/10/24 19:52 Alkaline Phosphatase 132 U/L (35-105) H 08/10/24 19:52 Total Protein 7.2 g/dL (6.6-8.7) 08/10/24 19:52 Albumin 3.6 g/dL (3.5-5.2) 08/10/24 19:52 Globulin 3.6 g/dL (1.3-4.6) 08/10/24 19:52 Lipase 32 U/L (13-60) 08/10/24 19:52 Urine Color Yellow (Yellow) 08/10/24 19:58 Urine Appearance Clear (CLEAR) 08/10/24 19:58 Urine pH 6.5 (5-7) 08/10/24 19:58 Ur Specific [place] 1.023 (1.005-1.030) 08/10/24 19:58 Urine Protein Negative (Negative) 08/10/24 19:58 Urine Glucose (UA) Negative (Normal) 08/10/24 19:58 Urine Ketones Negative (Negative) 08/10/24 19:58 Urine Blood Negative (Negative) 08/10/24 19:58 Urine Nitrate Negative (Negative) 08/10/24 19:58 Urine Bilirubin Negative (Negative) 08/10/24 19:58 Urine Urobilinogen 1.0 mg/dL (Negative) 08/10/24 19:58 Ur Leukocyte Esterase Negative (Negative) 08/10/24 19:58 Urine RBC 0-2 /hpf (0-2) 08/10/24 19:58 Urine WBC 0-5 /hpf (0-5) 08/10/24 19:58 Ur Squamous Epith Cells 6-10 /hpf (0-5) 08/10/24 19:58 Amorphous Sediment Not Reportable 08/10/24 19:58 Urine Bacteria Trace /hpf (NONE) 08/10/24 19:58 Hyaline Casts 0-4 /lpf H 08/10/24 19:58 No radiology studies performed this visit Discharge Plan Discharge Patient Disposition: Home Clinical Impression: Viral gastroenteritis Condition: Stable Prescriptions: New ondansetron HCl 4 mg tablet 4 mg PO Q8H Qty: 20 0RF No Action nystatin 100,000 unit/mL suspension 5 ml PO QID Qty: 200 0RF Rx Instructions: swish and swallow fluconazole [Diflucan] 100 mg tablet 100 mg PO DAILY Qty: 10 0RF nystatin 100,000 unit/gram ointment 1 applic topical BID Qty: 60 0RF trazodone 50 mg tablet 50 mg PO .qhs Qty: 30 2RF prednisone 20 mg tablet 20 mg PO BID 5 Days Qty: 10 0RF permethrin 5 % cream 1 applic topical Q14D Qty: 60 0RF Rx Instructions: apply second treatment 14 days after first treatment if live lice remain buspirone 10 mg tablet 10 mg PO TID 30 Days Qty: 90 6RF famotidine 40 mg tablet 40 mg PO DAILY 30 Days Qty: 90 6RF levothyroxine 150 mcg tablet See Rx Instructions .ROUTE .COMPLEX Qty: 30 6RF Dose Instruction: Take 1 tablet by mouth once daily Rx Instructions: Take 1 tablet by mouth once daily oxybutynin chloride 5 mg tablet 5 mg PO BID 30 Days Qty: 60 6RF sertraline 100 mg tablet 150 mg PO DAILY 30 Days Qty: 45 5RF metformin 500 mg tablet 500 mg PO BID Qty: 60 5RF Discharge Orders: Discharge ED (Routine); Ordered 08/10/24 Ordered By: Jesús Bonilla Referrals: Alicia Baldwin FNP [Primary Care Provider] - Patient Instructions: Gastroenteritis (ED) Activity Restrictions/Additional Instructions: Drink plenty of fluids. Zofran for nausea. Monitor your condition closely and return with any new or worsening. Follow-up with primary care. Work note is provided. See attached patient instructions for further education. Stand Alone Forms: Work/School Release Coding Level of Care Code ED [employer] for Jared Vargas
[2024-08-10 20:01] LABS: Basophils % 0.3 %; Eosinophils # 0.1 10^3/uL (0.0-0.8); Eosinophils % 0.7 %; Hematocrit 37.1 % (36-47); Lymphocytes # 1.2 10^3/uL (0.8-4.8); Lymphocytes % 13.3 %; Mean Corpuscular HGB Conc 30.5 g/dL (30-55); Mean Corpuscular Hemoglobin 24.8 pg (27-33); Mean Corpuscular Volume 81.4 fl (85-98); Mean Platelet Volume 9.4 fL (7.4-10.4); Monocytes # 0.6 10^3/uL (0.2-0.9); Monocytes % 6.6 %; Neutrophils # 6.93 10^3/uL (1.8-7.7); Neutrophils % 78.8 %; Nucleated Red Blood Cells % 0 %; Platelet Count 262 10^3/cmm (157-399); Red Blood Count 4.56 10^6/uL (3.85-5.65); Red Cell Distribution Width 15.8 % (12.1-15.1)
[2024-08-10 20:12] LABS: Bilirubin Urine Negative (Negative); Blood Urine Negative (Negative); Glucose Urine UA Negative (Normal); Ketones Urine Negative (Negative); Leukocyte Esterase Urine Negative (Negative); Nitrate Urine Negative (Negative); Protein Urine Negative (Negative); Specific Gravity, Urine 1.023 (1.005-1.030); Urine Appearance Clear (CLEAR); Urine Color Yellow (Yellow); pH Urine 6.5 (5-7)
[2024-08-10 20:17] LABS: Alanine Aminotransferase 11 U/L (0-33); Albumin Level 3.6 g/dL (3.5-5.2); Alkaline Phosphatase 132 U/L (35-105); Anion Gap 14.8 (5-19); Aspartate Amino Transferase 12 U/L (0-32); Blood Urea Nitrogen 16 mg/dL (6-20); Calcium 8.6 mg/dL (8.5-10.5); Carbon Dioxide 23 mmol/L (22-29); Chloride 103 mmol/L (98-107); Creatinine Clr Calc Pharmacy 177.7052; Globulin 3.6 g/dL (1.3-4.6); Glomerular Filtration Rate 131.7 mL/min (90-130); Glucose 98 mg/dL (65-115); Lipase 32 U/L (13-60); Osmolality Calculated 285 mOsm/kg (285-295); Potassium 3.8 mmol/L (3.5-5.1); Sodium 137 mmol/L (136-145); Total Bilirubin 0.2 mg/dL (0.15-1.2); Total Protein 7.2 g/dL (6.6-8.7)
[2024-08-10 20:17] LABS: Add Urine Microscopic? YES; Bacteria Urine Trace /hpf; Hyaline Casts Urine 0-4 /lpf; RBC Urine 0-2 /hpf (0-2); WBC Urine 0-5 /hpf (0-5)
[2024-08-10 20:51] VITALS: BP 141/82; PULSE 80; O2SAT 96
== END 2024-08-10 20:52 | disposition home or self-care (01) ==
PROVIDERS: Emergency Provider Physician Assistant; PCP Nurse Practitioner Family
DX: A08.4 Viral intestinal infection, unspecified (principal); Z79.84 Long term (current) use of oral hypoglycemic drugs
CPT/HCPCS: 36415; 80053; 81001; 83690; 85025; 99283; J2405

== ENCOUNTER → 2024-12-18 09:57 | Outpatient (BNVA) | payer OTHER, SELFPAY | PROVIDERS: PCP Nurse Practitioner Family; Visit Provider Nurse Practitioner Family | DX: E03.9 Hypothyroidism, unspecified (principal); E28.2 Polycystic ovarian syndrome; E78.2 Mixed hyperlipidemia | CPT/HCPCS: 80053; 80061; 82607; 83036; 84403; 84443; 85025 ==

== ENCOUNTER 2025-01-09 08:29 | Outpatient (CLI) | payer OTHER, SELFPAY ==
--- NOTE | 2025-01-09 08:33 | MM_ITS ---
WS: [id number] ADDITIONAL VIEWS LEFT MAMMOGRAM WITH DIGITAL BREAST TOMOSYNTHESIS. LEFT breast ultrasound, limited HISTORY: ABNORMAL MAMMOGRAM follow-up from 05/22/2024. COMPARISON: 05/22/2024 Spot compression views LEFT breast in CC, MLO projections and true ML submitted with digital breast tomosynthesis and SM. Breast composition: There are scattered areas of fibroglandular density. Asymmetry persists in the upper outer quadrant at a mid to anterior depth. This is an ill-defined asymmetry with patchy areas of increased and decreased attenuation. Margins are ill-defined. Asymmetry measures approximately 2.0 x 1.0 cm. No associated calcifications. LEFT breast ultrasound, limited. Hypoechoic, irregular heterogeneous mass in the LEFT breast at 2:00, 3 cm from the nipple. This does correspond to the location of the mammographic finding although not quite as large. Area of concern measures 0.8 x 0.6 x 1.2 cm. No increased vascularity. MM/MM diag LT tomosynthesis [id number] IMPRESSION: BI-RADS: 4 - Suspicious Finding - Biopsy Should Be Considered. FOLLOW UP: Biopsy Recommended Ultrasound-guided biopsy recommended LEFT breast mass at 3:00. Notified SHRUTHI Lopez at 01/09/2025 9:57 AM. Discussed with Leeanna.
== END 2025-01-09 08:30 | disposition home or self-care (01) ==
PROVIDERS: PCP Nurse Practitioner Family; Visit Provider Nurse Practitioner Family
DX: R92.8 Other abnormal and inconclusive findings on diagnostic imaging of breast (principal); R92.323 Mammographic fibroglandular density, bilateral breasts; N63.21 Unspecified lump in the left breast, upper outer quadrant
CPT/HCPCS: 76642; 77061; G0279

== ENCOUNTER 2025-01-24 11:00 | Outpatient (CLI) | payer OTHER, SELFPAY ==
--- NOTE | 2025-01-24 11:45 | US_ITS ---
WS: [id number] ULTRASOUND-GUIDED LEFT BREAST BIOPSY CLINICAL INFORMATION: R92.8 - Other abnormal and inconclusive findings on diagn... FINDINGS: The procedure including risks, benefits, and complications were discussed with the patient who agreed to proceed. Using sterile technique patient was prepped and draped in the usual sterile fashion. After 1% lidocaine utilizing real-time ultrasound guidance 6 14-gauge cores were obtained of the LEFT breast lesion at the 2 o'clock position, 3 cm from the nipple. Subsequently a titanium clip was placed in the biopsy cavity. No immediate complications. US/[id number] IMPRESSION: 1. Uncomplicated ultrasound-guided LEFT breast biopsy. 2. The pathology demonstrates fibrocystic changes with fibrosis. Apocrine meta plasia. Mild usual ductal hyperplasia. Findings are benign. 3. Recommend return to annual screening mammography. 4. DENSITY: There are scattered areas of fibroglandular density. BI-RADS: 2 - Benign. FOLLOW UP: 1 Year Follow-up
== END 2025-01-24 11:01 | disposition home or self-care (01) ==
PROVIDERS: PCP Nurse Practitioner Family; Visit Provider Nurse Practitioner Family
DX: R92.8 Other abnormal and inconclusive findings on diagnostic imaging of breast (principal); N60.32 Fibrosclerosis of left breast; N60.42 Mammary duct ectasia of left breast; N60.82 Other benign mammary dysplasias of left breast; N62 Hypertrophy of breast; R92.322 Mammographic fibroglandular density, left breast
CPT/HCPCS: 19083; 88305

== ENCOUNTER → 2025-05-24 09:38 | Outpatient (BNVA) | payer OTHER, SELFPAY | PROVIDERS: PCP Nurse Practitioner Family; Visit Provider Nurse Practitioner Family | DX: E78.2 Mixed hyperlipidemia (principal); E28.2 Polycystic ovarian syndrome; E03.9 Hypothyroidism, unspecified; M17.12 Unilateral primary osteoarthritis, left knee | CPT/HCPCS: 73562; 80053; 80061; 83036; 84443; 85025 ==

== ENCOUNTER → 2025-07-03 14:57 | Outpatient (BNVA) | payer OTHER, SELFPAY | PROVIDERS: PCP Nurse Practitioner Family; Visit Provider Nurse Practitioner | DX: R11.10 Vomiting, unspecified (principal) | CPT/HCPCS: 87400 ==